=== PATIENT | male | born 2005 | race Asian ===

== ENCOUNTER 2024-11-12 18:02 | Inpatient (IN) ==
--- NOTE | 2024-11-12 18:19 | Emergency Department Note ---
Past Med/Surg History Problem List Social History Smoking Status: Never smoker Preferred Language: Portuguese Feels Safe at Home: Yes Results & Data (ED) Vital Signs Vital Signs - 24 hr 11/12/24 18:06 Temperature 36.8 C Temperature Source Oral Pulse Rate 66 Respiratory Rate 22 Respiratory Effort / Characteristics Non-Labored Respiratory Depth Normal Blood Pressure 132/64 Blood Pressure Mean 86 Pulse Oximetry 100 Oxygen Delivery Method Room Air Sepsis Recent Fever Within 48 Hours No Sepsis New/Unexplained Change in Mental Status No Sepsis Action Taken by Nursing No Action Required Discharge Plan Visit Data Chief Complaint: Syncope Stated Complaint: VOMIT, SYNCOPE ED Provider: Bladimir Murphy Forms Stand Alone Forms: Pending Sale To [facility] Referrals Referrals: [facility] [Primary Care Provider] -
[2024-11-12] MEDS: SODIUM CHLORIDE 0.9% 1,000 ML IV SCH (18:25)
[2024-11-12] MEDS: ONDANSETRON INJ 2 MG/ML 2 ML VIAL IV STA (18:28)
[2024-11-12] MEDS: KETOROLAC TROMETHAMINE 15 MG/ML VIAL IV ONE (18:44)
[2024-11-12] MEDS: DICYCLOMINE HCL 10 MG/ML 2 ML AMP/VIAL IM ONE (18:44)
[2024-11-12 18:47] LABS: Hematocrit (blood only) 47.3 % (42.0-52.0); Hemoglobin 16.5 g/dl (14.0-18.0); Immature Granulocytes # (auto) 0.03 K/uL (0.01-0.20); Immature Granulocytes % (auto) 0.3 %; Mean Corpuscular Hemoglobin 32.1 pg (25.0-34.0); Mean Corpuscular Volume 92.0 fL (80.0-100.0); Platelet Count 216 K/uL (130-400); RDW Standard Deviation 39.3 fL (36.4-46.3); Red Blood Count 5.14 M/uL (4.70-6.10); White Blood Count 9.71 K/ul (4.8-10.8)
--- NOTE | 2024-11-12 18:56 | XRay Report ---
Chest radiograph, one view History: Syncope Comparison: None Findings: Single AP view of the chest performed. No focal consolidation or pleural effusion. No pneumothorax. The cardiomediastinal silhouette is within normal limits. Normal pulmonary vascularity. No evidence for lymphadenopathy. No visualized bony or soft tissue abnormality. Impression: Normal chest radiograph Electronically signed by Mark Lewis 11-12-2024 6:56 PM
[2024-11-12 19:02] LABS: Alanine Aminotransferase 14 U/L (7-52); Albumin Globulin Ratio 1.6 (0.9-2); Alkaline Phosphatase 49 U/L (34-104); Anion Gap 17 (3-11); Bilirubin,Total 1.4 mg/dl (0.2-1.0); Blood Urea Nitrogen 18 mg/dl (6-23); Calcium 9.9 mg/dl (8.6-10.3); Carbon Dioxide 18 mmol/L (21-32); Chloride 105 mmol/L (98-107); Globulin 3.1 gm/dl (2.5-4.0); Glucose 127 mg/dl (70-99(Fasting)); Magnesium 1.7 mg/dl (1.7-2.4); Potassium 3.4 mmol/L (3.5-5.1); Sodium 140 mmol/L (136-145); Total Protein 8.0 gm/dl (6.0-8.3)
[2024-11-12] MEDS: OPTIRAY 320 100ml IV ONE (19:22)
[2024-11-12] MEDS: SODIUM CHLORIDE 0.9% 1,000 ML IV ONE (19:30)
[2024-11-12] MEDS: FAMOTIDINE 20MG IV PUSH 20 MG/5 ML SYR IV STA (19:30)
[2024-11-12] MEDS: diphenhydrAMINE 50 MG/ML VIAL IV STA (19:32)
[2024-11-12] MEDS: METOCLOPRAMIDE HCL INJ 5 MG/ML 2 ML VIAL IV STA (19:34)
--- NOTE | 2024-11-12 19:42 | CT Scan Report ---
Clinical History: Abdominal pain. Nausea and vomiting Technique: Axial computed tomography images were obtained of the abdomen and pelvis after the administration of intravenous contrast. Comparison is made to the prior CT dated 02/20/2023. Findings: The liver is overall of normal size, attenuation, and contour with no sign of cirrhosis or significant fatty infiltration. No liver mass lesion is seen. The portal vein is patent. The gallbladder appears unremarkable. No bile duct dilatation is noted. The spleen is of normal size. No focal splenic lesion is evident. The pancreas appears normal with no sign of acute or chronic pancreatitis and no mass lesion noted. The pancreatic duct is of normal caliber. The adrenal glands appear unremarkable. No definite renal or proximal ureteral calculi are seen on this contrast-enhanced study. There is no hydronephrosis or perinephric stranding. No renal mass lesion is identified. The aorta is of normal caliber. No abdominal adenopathy is seen. The stomach appears normal. There is no sign of small bowel obstruction. The colon appears unremarkable. The appendix appears normal also. No free intraperitoneal fluid or air is identified. No distal ureteral or bladder calculi are seen. No bladder mass lesion is evident. The iliac arteries are of normal caliber. No pelvic adenopathy is noted. The lungs bases appear clear. No fracture is identified. No focal osseous lesion is seen Impression: Unremarkable CT of the abdomen and pelvis Electronically signed by Jamie Gaming 11-12-2024 7:42 PM
[2024-11-12] MEDS: ACETAMINOPHEN 1,000 MG/100 ML VIAL IV STA ×2 (20:55→22:23)
[2024-11-12 21:04] LABS: Anion Gap 8 (3-11); Blood Urea Nitrogen 16 mg/dl (6-23); Calcium 8.7 mg/dl (8.6-10.3); Carbon Dioxide 22 mmol/L (21-32); Chloride 111 mmol/L (98-107); Glucose 109 mg/dl (70-99(Fasting)); Potassium 3.7 mmol/L (3.5-5.1); Sodium 141 mmol/L (136-145)
--- NOTE | 2024-11-12 21:27 | History & Physical Report ---
Date of Service November 12, 2024 Assessment & Plan (1) Hypophosphatemia: (2) Syncope: (3) Nausea and vomiting: Plan 19-year-old male with no significant PMHx who is presenting with episode of syncope with LOC day of arrival and concurrent nausea and vomiting. His ED evaluation is concerning for severe hypophosphatemia. He is not demonstrating any signs of heart failure, respiratory failure, or neurological symptoms at this time. He did receive potassium phosphate in the ED to start his replacement. He will be admitted for severe hypophosphatemia and continued on replacement for such. #Hypophosphatemia No h/o, not on medications that could cause such; with syncope the day of arrival. Provided with KPO4 in ED. Complaining of ongoing abdominal pain and nausea. No dietary restrictions, denies renal disorders, no medications. At time of admission, unclear etiology of low phosphorus. Pending further workup. - Phosphorus < 1 -- trend q6hr - Ca 8.7, BUN 16,Cr 1.00, Mg 1.7 - BMP am - CK, Vit D, PTH pending - 24 hr urine phosphate excretion pending - CXR WNL - CTAP WNL - Continue IV replacement -- transition to po phosphate once > 1.5 mg/dL -- repeat Phosphorus @ 0000 and 0600 (11/13) - Repeat phosphate AM #Syncope/Abdominal pain/Nausea and Vomiting Possibly contributing to each other, also in setting of severe hypophosphatemia. Received replacement in ED as well as 2L NSS. - CBC w/o leukocytosis, CMP bilirubin 1.4 - CBC am - CTAP WNL - Zofran prn N/V - Receiving IVF through phosphate replacement - adjust once off IV phosphate - Orthostatic vitals pending Dispo: Admit, med/tele VTE Prophylaxis: Encourage ambulation This document was dictated utilizing [employer]. Please excuse any grammatical errors that may be secondary to use of this software. Admission and Anticipated Discharge Date Admission Date: 11/12/2024 History of Present Illness Chief Complaint: Syncope, N/V Primary Care Provider: [facility] 19-year-old male no significant PMHx presenting for vomiting and abdominal pain starting the day of arrival with severe leg cramping. Reports that the severe abdominal pain started around 1430 the day of arrival and continued to worsen. Reports that it is a sharp, centralized pain that does not radiate. At its worse, it is a 10/10 on the pain scale, and it is currently a 7/10. It is worsened with walking, and nothing seems to make it better. He has had multiple episodes of vomiting on the day of arrival, > 30 times per the patient. Reports that his emesis is yellow in color, no blood. He feels nauseous. He has felt some lightheadedness the day of arrival as well. When he was with his friend and walking to his car, he had a syncopal episode where he fell down and had LOC for ~ 15 seconds. He does not remember this happening. States that he does not have any pain from the fall, only having abdominal pain. He denies chest pain, SOB, palpitations, numbness/tingling, dizziness, or confusion. Reports that he has no history of kidney disorders. Eats at least 2 meals a day without dietary restrictions. Pt reports "talking is actually making my pain worse, can we be done." Denies this ever happening before. ED evaluation reveals CBC without leukocytosis, and with stable H&H; CMP chloride 111, glucose 109, bilirubin 1.4; phosphorus <1; CXR WNL; CTAP unremarkable; EKG NSR at 60 bpm.; Provided with 2L NSS, ondansetron 4 mg IV, dicyclomine 20 mg IM, ketorolac 10 mg IV, famotidine 20 mg IV, diphenhydramine 25 mg IV, and metoclopramide 10 mg IV in ED. Please see Dr. Castro's attestation for adjustments/additions to treatment plan. Allergies Allergy/AdvReac Type Severity Reaction Status Date / Time No Known Allergies Allergy Unverified 11/12/24 18:28 Home Medications Medication Instructions Recorded Confirmed Type No Known Home Medications 11/12/24 11/12/24 History Past Med/Surg History Problem List Nausea and vomiting Syncope Hypophosphatemia Social History Smoking Status: Current every day smoker Tobacco Type: E-cigarettes / Vaping Second Hand Exposure: No; Do You Dip or Chew Tobacco: No; Tobacco Cessation Education Requested by Patient: No Hx Alcohol Use: Yes Hx Substance Use: No Preferred Language: Portuguese Communication Ability: Effective Braid Pattern Setter Required: No Beliefs That Will Affect Care: None Current Living Situation: Other Current Living Situation Comment: [facility] Other Information That Helps Us Care for You: No Feels Safe at Home: Yes Safety Concerns: Feels Safe At This Time Assistive Devices: Hospital Bed Review of Systems Review of Systems: All systems reviewed & are unremarkable except as noted in Subjective Physical Exam Physical Exam: General: Appears uncomfortable, restless in hospital bed Skin: Warm and dry Head: Normocephalic, atraumatic Eyes: PERRL, conjunctivae clear, sclera non-icteric ENT: External ear and ear canal without swelling; nose atraumatic; good dentition, tongue normal appearance, pharynx normal Neck: Supple, no LAD Cardio: RRR, no M/G/R, S1 and S2 normal Resp: No respiratory distress, Lungs CTA in all lobes bilaterally, no wheezes, rales, or rhonchi Abdomen: Soft, symmetric, tenderness to palpation epigastric region; No masses or hepatosplenomegaly; Bowel sounds normoactive MSK: No deformities; pulses palpable and equal; no edema. Neuro: Awake, alert; Sensation intact bilaterally; CN grossly intact Psych: Appropriate mood and affect; good judgement and insight. Results & Data Results & Data Vital Signs (Past 12 Hours) Vital Signs Temp Pulse Resp BP Pulse Ox O2 Del Method 11/12/24 18:32 58 L 11/12/24 18:06 36.8 C 66 22 132/64 100 Room Air Laboratory Results 11/12/24 11/12/24 20:30 18:26 WBC 9.71 RBC 5.14 Hgb 16.5 Hct 47.3 MCV 92.0 MCH 32.1 MCHC 34.9 RDW Std Deviation 39.3 RDW Coeff of Doni 11.6 Plt Count 216 MPV 10.3 Immature Gran % (Auto) 0.3 Neut % (Auto) 86.7 Lymph % (Auto) 8.8 Griggs % (Auto) 3.9 Eos % (Auto) 0.1 Baso % (Auto) 0.2 Neut # (Auto) 8.42 H Lymph # (Auto) 0.85 L Griggs # (Auto) 0.38 Eos # (Auto) 0.01 Baso # (Auto) 0.02 Immature Gran # (Auto) 0.03 Sodium 141 140 Potassium 3.7 3.4 L Chloride 111 H 105 Carbon Dioxide 22 18 L Anion Gap 8 17 H BUN 16 18 Creatinine 1.00 1.15 Est Cr Clr Drug Dosing Not Reportable Not Reportable eGFR 110.50 93.44 BUN/Creatinine Ratio 16.0 15.7 Glucose 109 H 127 H Calcium 8.7 9.9 Phosphorus < 1.0 L* Magnesium 1.7 Total Bilirubin 1.4 H AST 18 ALT 14 Alkaline Phosphatase 49 Total Protein 8.0 Albumin 4.9 Globulin 3.1 Albumin/Globulin Ratio 1.6 Diagnostic Findings Chest X-Ray 11/12/24 18:16 Chest radiograph, one view History: Syncope Comparison: None Findings: Single AP view of the chest performed. No focal consolidation or pleural effusion. No pneumothorax. The cardiomediastinal silhouette is within normal limits. Normal pulmonary vascularity. No evidence for lymphadenopathy. No visualized bony or soft tissue abnormality. Impression: Normal chest radiograph Electronically signed by Mark Lewis 11-12-2024 6:56 PM Abdomen/Pelvis CT 11/12/24 19:16 Clinical History: Abdominal pain. Nausea and vomiting Technique: Axial computed tomography images were obtained of the abdomen and pelvis after the administration of intravenous contrast. Comparison is made to the prior CT dated 02/20/2023. Findings: The liver is overall of normal size, attenuation, and contour with no sign of cirrhosis or significant fatty infiltration. No liver mass lesion is seen. The portal vein is patent. The gallbladder appears unremarkable. No bile duct dilatation is noted. The spleen is of normal size. No focal splenic lesion is evident. The pancreas appears normal with no sign of acute or chronic pancreatitis and no mass lesion noted. The pancreatic duct is of normal caliber. The adrenal glands appear unremarkable. No definite renal or proximal ureteral calculi are seen on this contrast-enhanced study. There is no hydronephrosis or perinephric stranding. No renal mass lesion is identified. The aorta is of normal caliber. No abdominal adenopathy is seen. The stomach appears normal. There is no sign of small bowel obstruction. The colon appears unremarkable. The appendix appears normal also. No free intraperitoneal fluid or air is identified. No distal ureteral or bladder calculi are seen. No bladder mass lesion is evident. The iliac arteries are of normal caliber. No pelvic adenopathy is noted. The lungs bases appear clear. No fracture is identified. No focal osseous lesion is seen Impression: Unremarkable CT of the abdomen and pelvis Electronically signed by Jamie Gaming 11-12-2024 7:42 PM Medications Administered 2L NSS Zofran 4 mg IV Dicyclomine 20 mg IM Ketorolac 10 mg IV Famotidine 20 mg IV Diphenhydramine 25 mg IV Metoclopramide 10 mg IV ECG Additional Comments: NSR 60 bpm, LA 160, QRS 88, QT/QTc 422/422, PRT negative Code Status & VTE Plan Code Status Full Supervising Physician Co-Signing Physician Notes Patient seen and examined, chart reviewed, case discussed with ADARSH Potts and I agree with the assessment and plan as above. In brief, patient is a 19yo male presenting with nausea/vomiting and abdominal pain. Found to have low PO4 level at <1 Patient examined in room 286-2 Sleeping soundly but arousable +S1/S2, regular, no m/r/g Lungs CTA Abd soft, nontender Labs and images reviewed Assessment/Plan -Continue PO4 repletion - most recent value 3.1 - ordered for q 6 hours -48 mmol PO4 ordered -24 hour urinary phosphorous ordered - patient has not been compliant with this on the floor and has missed several collections therefore will discontinue order as likely will not be accurate -Remainder as above PG Care Time/CCT Total # of Minutes Spent Total Time Spent with Patient: Total time spent is greater than 50% in coordination of care (as documented) at patient's floor/unit and/or counseling patient: Coding Level of Care Code 43008 INT INP/OBS CARE 3/75MIN Diagnoses Hypophosphatemia E83.39 Syncope R55 Nausea and vomiting R11.2
[2024-11-12] MEDS: POTASSIUM PHOS 3 MMOL/1 ML INFUSION IV STA (21:29)
[2024-11-12] MEDS: POTASSIUM PHOSPHATE 24 MMOL in SODIUM CHLORIDE 0.9% 500 ML IV ONE (21:29)
[2024-11-12 22:14] LABS: Creatine Kinase 218 U/L (30-223)
[2024-11-12] MEDS ORDERED: POLYETHYLENE (MIRALAX) 17 GM PACK PO PRN (22:38)
[2024-11-12] MEDS ORDERED: ALUMINUM/MAGNESIUM SUSP 30 ML UDC PO PRN (22:38)
[2024-11-12] MEDS ORDERED: ONDANSETRON INJ 2 MG/ML 2 ML VIAL IV PRN (22:38)
[2024-11-12] MEDS ORDERED: MELATONIN 3 MG TAB PO PRN (22:38)
[2024-11-13] MEDS: ACETAMINOPHEN 325 MG TAB PO PRN (02:20)
[2024-11-13] MEDS: ONDANSETRON INJ 2 MG/ML 2 ML VIAL IV PRN (02:21)
[2024-11-13 07:27] LABS: Anion Gap 9.0 (3-11); Blood Urea Nitrogen 14.0 mg/dl (6-23); Calcium 8.7 mg/dl (8.6-10.3); Carbon Dioxide 23.0 mmol/L (21-32); Chloride 107.0 mmol/L (98-107); Creatinine Clr Calc Pharmacy 126.7 ml/min; Glucose 109.0 mg/dl (70-99(Fasting)); Hematocrit (blood only) 43.1 % (42.0-52.0); Hemoglobin 15.4 g/dl (14.0-18.0); Mean Corpuscular Hemoglobin 33.3 pg (25.0-34.0); Mean Corpuscular Volume 93.1 fL (80.0-100.0); Platelet Count 191 K/uL (130-400); Potassium 3.6 mmol/L (3.5-5.1); RDW Standard Deviation 39.9 fL (36.4-46.3); Red Blood Count 4.63 M/uL (4.70-6.10); Sodium 139.0 mmol/L (136-145); White Blood Count 6.73 K/ul (4.8-10.8)
[2024-11-13 08:04] VITALS: BP 101/52; RESP 16; TEMP 98.2; O2SAT 99
--- NOTE | 2024-11-13 09:25 | Discharge Summary ---
Discharge Summary Date of Service November 13, 2024 Principal Dx & Hospital Course #1 = Principal Diagnosis (1) Hypophosphatemia: (2) Syncope: (3) Acute gastroenteritis: Plan 19-year-old male with no significant PMHx who is presenting with episode of syncope with LOC day of arrival and concurrent nausea and vomiting. His ED evaluation is concerning for severe hypophosphatemia. He is not demonstrating any signs of heart failure, respiratory failure, or neurological symptoms at this time. He did receive potassium phosphate in the ED to start his replacement. He will be admitted for severe hypophosphatemia and continued on replacement for such. Acute gastroenteritis was treated with supportive care and resolved by the time of discharge. Sent Rx for zofran ODT. Syncope was related to dehydration and high vagal tone from vomiting. Normal on tele overnight. Severe hypophosphatemia - Phos <1 in ED, replaced IV, phos level later that evening was normal and was elevated this AM. -vit D and PTH were normal -suspect intracellular shifts as the culprit because total body stores are not deficient Admission HPI Per Admitting Provider 19-year-old male no significant PMHx presenting for vomiting and abdominal pain starting the day of arrival with severe leg cramping. Reports that the severe abdominal pain started around 1430 the day of arrival and continued to worsen. Reports that it is a sharp, centralized pain that does not radiate. At its worse, it is a 10/10 on the pain scale, and it is currently a 7/10. It is worsened with walking, and nothing seems to make it better. He has had multiple episodes of vomiting on the day of arrival, > 30 times per the patient. Reports that his emesis is yellow in color, no blood. He feels nauseous. He has felt some lightheadedness the day of arrival as well. When he was with his friend and walking to his car, he had a syncopal episode where he fell down and had LOC for ~ 15 seconds. He does not remember this happening. States that he does not have any pain from the fall, only having abdominal pain. He denies chest pain, SOB, palpitations, numbness/tingling, dizziness, or confusion. Reports that he has no history of kidney disorders. Eats at least 2 meals a day without dietary restrictions. Pt reports "talking is actually making my pain worse, can we be done." Denies this ever happening before. ED evaluation reveals CBC without leukocytosis, and with stable H&H; CMP chloride 111, glucose 109, bilirubin 1.4; phosphorus <1; CXR WNL; CTAP unremarkable; EKG NSR at 60 bpm.; Provided with 2L NSS, ondansetron 4 mg IV, dicyclomine 20 mg IM, ketorolac 10 mg IV, famotidine 20 mg IV, diphenhydramine 25 mg IV, and metoclopramide 10 mg IV in ED. Please see Dr. Castro's attestation for adjustments/additions to treatment plan. Discharge Plan Discharge Items Patient Disposition: Home - Self-Care Reason For Visit: HYPOPHOSPHATEMIA Discharge Diagnosis: acute gastroenteritis Activity: Resume your previous activity Non-emergency contact: Primary Care Provider Call non-emergency contact if: you have any medication questions and your symptoms worsen Follow-up/Referrals: [facility] [Primary Care Provider] - Diet: Regular Addtl Attending Provider Instructions: You were treated for acute gastroenteritis (nausea/vomiting and diarrhea). This can be from a virus (like norovirus) or from food poisoning. It typically resolves within 24-72 hours and does not require antibiotics The syncope (passing out) was induced by dehydration and nausea. Heart rhythm monitoring was normal overnight. If you have persistent symptoms, see your doctor Its a good idea to stick with bland, easy to digest foods for a few days - soups , noodles, pasta, rice, lean meets, well cooked vegetables, etc Your blood phosphorus level was severely low in the ER. It was replaced with IV. I think this was related to the acute vomiting etc, because the level was normal on first recheck and high normal today. Some tests are pending - vitamin D level and parathyroid level - but I feel confident that these will be normal. We'll contact you if you need any further testing or treatment based on the labs. I prescribed nausea medicine (zofran / ondansetron) for as needed use - this medicine is well tolerated but can be sedating for some people If you have ongoing diarrhea / loose stool you can take imodium as directed - available over the counter It was a pleasure taking care of you in the hospital, Ileana Turk MD Pending Studies at Discharge: Yes Stand-Alone Forms: My [facility], Smoking Cessation Medications and DC Order Prescriptions: New ondansetron 4 mg tablet,disintegrating 4 mg PO Q6H PRN (Reason: nausea and vomiting) Qty: 20 0RF Discharge Orders: Discharge Order (Routine); Ordered 11/13/24 Ordered By: Ileana Turk Admission Data Admit Date/Time: 11/12/24 21:44 Attending Provider: Ileana Turk Admit Provider: Gabi Castro Primary Care Provider: [facility] Other Providers: Gabi Castro Other Interventions: Discharge Summary Assessment (RN) Last Done: 11/13/24 09:31 Hospital Stay Data Consultations 11/12/24 20:36 ED Decision to Admit Stat Diagnostic Imagining Performed 11/12/24 19:16 CT abd pelvis IV con only Stat Pending Results Patient Have Any Pending Studies at Discharge: Yes Discharge Instructions Given to Patient (Per Discharging Provider) You were treated for acute gastroenteritis (nausea/vomiting and diarrhea). This can be from a virus (like norovirus) or from food poisoning. It typically resolves within 24-72 hours and does not require antibiotics The syncope (passing out) was induced by dehydration and nausea. Heart rhythm monitoring was normal overnight. If you have persistent symptoms, see your doctor Its a good idea to stick with bland, easy to digest foods for a few days - soups, noodles, pasta, rice, lean meets, well cooked vegetables, etc Your blood phosphorus level was severely low in the ER. It was replaced with IV. I think this was related to the acute vomiting etc, because the level was normal on first recheck and high normal today. Some tests are pending - vitamin D level and parathyroid level - but I feel confident that these will be normal. We'll contact you if you need any further testing or treatment based on the labs. I prescribed nausea medicine (zofran / ondansetron) for as needed use - this medicine is well tolerated but can be sedating for some people If you have ongoing diarrhea / loose stool you can take imodium as directed - available over the counter It was a pleasure taking care of you in the hospital, Ileana Turk MD Total Time Total Time Spent Total Time Spent (In Minutes): <30 Coding Level of Care Code 49336 IN/OBS DISCH 30 MIN/LESS Diagnoses Hypophosphatemia E83.39 Syncope R55 Acute gastroenteritis K52.9
[2024-11-13 09:32] VITALS: PULSE 57
== END 2024-11-13 10:02 | disposition home or self-care (01) | DRG 642 ==
LOC: ED 18:02 → SUATTDRO 21:44 → 2N 21:44